=== PATIENT | male | born 1935 | race Caucasian/White ===

== ENCOUNTER → 2018-12-24 | Outpatient (CLI) | payer MEDICARE, BC ==
[~2018-12-24] MED LIST: CIPRO500 MG PO; FLOMAX0.4 MG PO; LEVAQUIN 750 M750 MG PO; OXYCODONE HCL 55 MG PO; PROSCAR 5MG TABL5 MG PO
== END ==
LOC: M.RAD 08:05
DX: J47.9 Bronchiectasis, uncomplicated (principal)

== ENCOUNTER 2020-04-24 14:16 | Inpatient (IN) | payer MEDICARE, BC ==
[~2020-04-24] VITALS: Ht 182.9 cm; Wt 73.9 kg
[2020-04-24 14:24] VITALS: BP 117/74
[2020-04-24 14:57] LABS: ABSOLUTE EOSINOPHILS 0.1 thou/uL (0.0-0.7); ABSOLUTE MONOCYTES 0.9 thou/uL (0.0-1.2); ABSOLUTE NEUTROPHILS 6.7 thou/uL (1.6-8.1); BASOPHILS 0.4 %; EOSINOPHILS 0.8 %; HEMATOCRIT 38.4 % (42.0-52.0); HEMOGLOBIN 12.9 gm/dL (14.0-18.0); LYMPHOCYTES 20.5 %; MCH 28.8 pg (26.0-34.0); MCHC 33.7 g/dL (28.0-37.0); MCV 85.4 fL (80.0-100.0); MONOCYTES 9.2 %; MPV 9.7 fl. (7.2-11.1); NUCLEATED RBCS 0 /100WBC; PLATELET COUNT* 147 thou/uL (150-400); POLYS 69.1 %; RBC 4.49 mil/uL (4.50-6.00); RDW-CV 14.6 % (10.5-14.5); WBC 9.7 thou/uL (4.0-11.0)
[2020-04-24 15:02] LABS: CALCIUM 8.3 mg/dL (8.5-10.1); CREATININE 1.5 mg/dL (0.6-1.3); POTASSIUM 3.9 mmol/L (3.5-5.1)
[2020-04-24 15:04] LABS: APTT 26.3 Seconds (25.0-31.3); INR 1.1
[2020-04-24 15:13] LABS: ALBUMIN 3.5 g/dL (3.4-5.0); MAGNESIUM 1.9 mg/dL (1.8-2.4); TOTAL BILIRUBIN 0.6 mg/dL (<0.1-1.0)
[2020-04-24 16:57] VITALS: BP 96/60
[2020-04-24 20:00] VITALS: BP 94/60
--- NOTE | 2020-04-24 20:11 | NUR ---
PT ADMITTED TO ROOM 204. PT REMAINS IN ATRIAL FIBRILLATION WITH RATE IN THE 60'S. PT HAS BEEN FREE FROM PAIN. PT INSTRUCTED ON USE OF CALL LIGHT TO OBTAIN NURSING ASSIST.
--- NOTE | 2020-04-24 22:00 | NUR ---
RECEIVED REPORT AND ASSUMED CARE OF PT, ASSESSMENT COMPLETED. PT VERY PLEASANT AND COOPERATIVE. SITTING UP IN CHAIR WATCHING TV. TELEMETRY ON SHOWING A-FIB WITH OCC PVC. DENIES CHEST PAIN OR SOA. WILL CONT TO MONITOR AND ASSIST NEEDED.
[2020-04-24 23:51] VITALS: BP 117/77
[2020-04-25 04:00] VITALS: BP 114/71
--- NOTE | 2020-04-25 07:32 | NUR ---
AWAKE OCC DURING NIGHT. INDEPENDENT BRP WITH STEADY GAIT. TELEMETRY CONT TO SHOW A-FIB WITH RATE INCREASING TO 160'S WHEN UP TO BR. NO CHANGE IN ASSESSEMNT. HS GOALS OF REST AND SAFETY ACHIEVED. HOURLY ROUNDING OBSERVED.
[2020-04-25 08:00] VITALS: BP 90/62
--- NOTE | 2020-04-25 10:06 | EKG ---
[place] [address] ELECTROCARDIOGRAM REPORT Name: YAYO TINEO Room: [address] ADM IN ..#: [id number] Admission: 04/24/20 Attend Phys: Wellington Hebert Discharge: Date of : 37 Date of Service: 04/24/20 1421 Report #: [id number] THIS REPORT FOR: //name// [facility] ED Test Date: 2020-04-24 Test Time: 14:21:42 Pat Name: YAYO TINEO Department: Room: [facility] Gender: M Security Intelligence Analyst: BREONNA : 1935 Requested By: Fernando Schrader Order Number: [id number] MD: Anastacio Mcdonnell Measurements Intervals [place] Rate: 133 P: [place]: QRS: 88 QRSD: 89 T: 57 QT: 302 QTc: 450 Interpretive Statements Atrial fibrillation with rapid V-rate septal q waves Ventricular premature complex Borderline right axis deviation Borderline T wave abnormalities Compared to ECG 01/26/2017 11:35:23 Ventricular premature complex(es) now present T-wave abnormality now present Sinus rhythm no longer present Electronically Signed On 04-25-2020 10:06:43 CDT by Anastacio Mcdonnell [email or web address] <ELECTRONICALLY SIGNED> By: Anastacio Mcdonnell MD, [facility] 04/25/20 1006 142 142 Anastacio Mcdonnell MD, [facility] /EPI
--- NOTE | 2020-04-25 10:09 | EKG ---
[place] [address] ELECTROCARDIOGRAM REPORT Name: YAYO TINEO Room: [address] ADM IN M.R.#: [id number] Admission: 04/24/20 Attend Phys: Wellington Hebert Discharge: Date of : 37 Date of Service: 04/24/20 1651 Report #: [id number] THIS REPORT FOR: //name// [facility] ED Test Date: 2020-04-24 Test Time: 16:51:04 Pat Name: YAYO TINEO Department: Room: [address] Gender: M Performance Improvement Analyst: CCD : 1935 Requested By: Fernando Schrader Order Number: [id number] Reading MD: Anastacio Mcdonnell Measurements Intervals [place] Rate: 56 P: CA: QRS: 81 QRSD: 96 T: 79 QT: 403 QTc: 389 Interpretive Statements Atrial fibrillation Borderline right axis deviation Borderline low voltage, extremity leads Nonspecific T abnormalities, anterior leads Baseline wander in lead(s) II,III,aVF Compared to ECG 04/24/2020 14:21:42 Ventricular premature complex(es) no longer present T-wave abnormality still present Electronically Signed On 04-25-2020 10:09:39 CDT by Anastacio Mcdonnell [email or web address] <ELECTRONICALLY SIGNED> By: Anastacio Mcdonnell MD, [facility] 04/25/20 1009 50 165 Anastacio Mcdonnell MD, [facility] /EPI
[2020-04-25 12:00] VITALS: BP 105/66
--- NOTE | 2020-04-25 13:57 | NUR ---
Pt is A&O. KOBUK. Resides at home with . Independent. No DME. Hx of HH, does not recall with which agency. No hx of SNF. Cardiology following, Pt on cardizem gtt. Goal is home at dc. No needs anticipated.
[2020-04-25 14:24] LABS: HEMATOCRIT 39.6 % (42.0-52.0); HEMOGLOBIN 13.3 gm/dL (14.0-18.0); MCH 28.8 pg (26.0-34.0); MCHC 33.5 g/dL (28.0-37.0); MCV 85.8 fL (80.0-100.0); RBC 4.61 mil/uL (4.50-6.00); RDW-CV 14.8 % (10.5-14.5); WBC 8.1 thou/uL (4.0-11.0)
[2020-04-25 14:28] LABS: CALCIUM 8.4 mg/dL (8.5-10.1); CREATININE 1.4 mg/dL (0.6-1.3); MAGNESIUM 1.9 mg/dL (1.8-2.4); POTASSIUM 4.2 mmol/L (3.5-5.1)
[2020-04-25 14:29] LABS: INR 1.1
[2020-04-25 16:00] VITALS: BP 121/85
--- NOTE | 2020-04-25 17:36 | 2DMMODE ---
[place] [address] 2 D/M-MODE ECHOCARDIOGRAM Name: YAYO TINEO Room: [address] IN [facility]#: [id number] Admission: 04/24/20 Attend Phys: Wellington Hebert Discharge: Date of : 37 Date of Service: 04/25/20 1736 Report #: [id number] THIS REPORT FOR: cc: Jt Angel,Jt Soto,Anastacio Araujo MD [facility] ~ APPROVED REPORT Study performed: 04/25/2020 16:04:07 EXAM: Comprehensive 2D, Doppler, and color-flow Echocardiogram Patient Location: In-Patient Room #: [facility] [place] Status: routine BSA: 1.95 HR: 86 bpm BP: 105/66 mmHg Rhythm: Atrial Fibrillation Other Information Study Quality: Good Indications Atrial Fibrillation 2D Dimensions IVSd: 10.66 (7-11mm) LVOT Diam: 22.34 (18-24mm) LVDd: 51.95 mm PWd: 8.46 (7-11mm) Ascending Ao: 34.75 (22-36mm) LVDs: 43.39 (25-40mm) Aortic Root: 34.10 mm Volumes Left Atrial Volume (Systole) LA ESV Index: 29.50 mL/m2 Aortic Valve AoV Peak Marco.: 0.93 m/s AO Peak Gr.: 3.45 mmHg LVOT Max P.68 mmHg AO Mean Gr.: 1.67 mmHg LVOT Mean P.83 mmHg LVOT Max V: 0.65 m/s AO V2 VTI: 13.97 cm LVOT Mean V: 0.43 m/s MURPHY (VTI): 3.03 cm2 LVOT V1 VTI: 10.79 [place] [address] 2 D/M-MODE ECHOCARDIOGRAM Name: YAYO TINEO Room: [address] IN [facility].#: [id number] Admission: 04/24/20 Attend Phys: Wellington Hebert Discharge: Date of : 37 Date of Service: 04/25/20 1736 Report #: [id number] TDI Medial E' Marco.: 0.11 m/s Pulmonary Valve PV Peak Marco.: 0.77 m/s PV Peak Gr.: 2.39 mmHg Tricuspid Valve RAP Estimate: 5.00 mmHg TR Peak Gr.: 21.57 mmHg RVSP: 26.00 mmHg PA Pressure: 26.00 mmHg TV Max P.00 mmHg Left Ventricle The left ventricle is normal size. There is global hypokinesis of the left ventricle. There is normal left ventricular wall thickness. Left ventricular systolic function is moderately decreased. LVEF is 40-45%. This study is not technically sufficient to allow evaluation of the LV diastolic function due to atrial fibrillation. Right Ventricle The right ventricle is normal size. The right ventricular systolic function is normal. Atria Left atrium is mildly dilated. Right atrium is moderately dilated. Aortic Valve The aortic valve is normal in structure. Trace aortic regurgitation. There is no aortic valvular stenosis. Mitral Valve Doming of the anterior mitral valve leaflet is present. Mild mitral regurgitation. No evidence of mitral valve stenosis. Tricuspid Valve The tricuspid valve is normal in structure. Trace tricuspid regurgitation. No pulmonary hypertension. Pulmonic Valve The pulmonary valve is normal in structure. There is no pulmonic valvular regurgitation. Great Vessels The aortic root is normal in size. IVC is normal in size and collapses >50% [place] [address] 2 D/M-MODE ECHOCARDIOGRAM Name: YAYO TINEO Room: [address] IN [facility]#: [id number] Admission: 04/24/20 Attend Phys: Wellington Hebert Discharge: Date of : 37 Date of Service: 04/25/20 1736 Report #: [id number] Pericardium There is no pericardial effusion. <Conclusion> LVEF is 40-45%. Left atrium is mildly dilated. Doming of the anterior mitral valve leaflet is present. Mild mitral regurgitation. <ELECTRONICALLY SIGNED> By: Anastacio Mcdonnell MD, [facility] 04/25/20 1736 173 35 Anastacio Mcdonnell MD, [facility] /INF
--- NOTE | 2020-04-25 18:06 | NUR ---
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
[2020-04-25 19:30] VITALS: BP 118/69
[2020-04-26] VITALS: BP 110/48
[2020-04-26 02:06] LABS: GLYCOHEMOGLOBIN (HGB A1C) 5.8 % (4.8-5.6)
[2020-04-26 04:00] VITALS: BP 98/50
[2020-04-26 04:56] LABS: CHOLESTEROL 104 mg/dL (<200); HDL CHOLESTEROL 43 mg/dL (>40); LDL CHOLESTEROL 52 mg/dL (<100); TC:HDL 2.4 Ratio (Not establshd); TRIGLYCERIDE 47 mg/dL (<150); VLDL 9 mg/dL (<40)
[2020-04-26 05:07] LABS: SERUM ASSESSMENT CLEAR
--- NOTE | 2020-04-26 05:25 | NUR ---
PATIENT HAS REMAINED ALERT AND ORIENTED X 4 THROUGHOUT THE SHIFT AND RESTING QUIETLY ON HOURLY ROUNDS. UP TO ROOM INDEPENDENTLY WITH STEADY GAIT. DENIES CHEST PAIN OR SHORTNESS OF AIR. PATIENT REMAINS IN A-FIB ON MONITOR WITH PVC'S. HR IMPROVED OVERALL. BP 98-118/48-69. HOURLY ROUNDS COMPLETED. CONTINUE TO MONITOR.
[2020-04-26 08:08] VITALS: BP 108/57
--- NOTE | 2020-04-26 08:24 | CON ---
[address] [address] CONSULTATION Name: YAYO TINEO Room: [address] IN .R.#: [id number] Admission: 04/24/20 Attend Phys: Elo Roy Discharge: Date of : 37 Report #: [id number] THIS REPORT FOR: //name// cc: Jt Angel Russell J. DO THIS REPORT FOR: //name// CC: Jt Richards DATE OF SERVICE: 04/25/2020 CARDIOLOGY CONSULTATION HISTORY OF PRESENT ILLNESS: The patient is an 84-year-old white male who I was asked to see in the hospital today after he was noted to be in atrial fibrillation. The patient states that in 2003, he was diagnosed with mitral valve prolapse. Apparently, he had a treadmill test at that time, but was placed on no medications. 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 For the past few weeks, he has had increasing shortness of breath and decrease in his energy level. He denied any fever, cough, vomiting, bleeding. He has had some swelling of his feet. He denies chest pain, palpitations. PAST MEDICAL HISTORY: He has had hernia repair, tonsillectomy. No history of hypertension, diabetes. He does have prostatism. MEDICATIONS: His only medication includes Proscar. ALLERGIES: He has no known drug allergies. FAMILY HISTORY: His father of heart attack. SOCIAL HISTORY: He is . He and his live in a farm. No smoking or alcohol abuse. REVIEW OF SYSTEMS: No history of stroke. He is hard of hearing. No asthma, liver disease, kidney disease. He had skin cancer in the past. He wears glasses. No psychiatric illness. PHYSICAL EXAMINATION: GENERAL: Elderly male, lying in bed, appeared in no distress. VITAL SIGNS: He had a blood pressure of 110/60, pulse is 90 and irregular. He was afebrile. HEENT: He was anicteric. Conjunctivae pink. Mucous membranes moist. NECK: Veins nondistended. No carotid bruits[place] [address] CONSULTATION Name: TINEOYAYO Room: [address]#: [id number] Admission: 04/24/20 Attend Phys: Elo Roy Discharge: Date of : 37 Report #: [id number] CHEST: Clear to auscultation. CARDIOVASCULAR: Irregular, tachycardia. No significant murmurs. ABDOMEN: Soft. EXTREMITIES: Had trace edema. Dorsalis pedis pulse cannot be palpated. SKIN: Cool and dry. NEUROLOGIC: Nonfocal. LYMPH: No adenopathy. MUSCULOSKELETAL: No joint effusion. DIAGNOSTIC DATA: ECG on admission showed atrial fibrillation with increased ventricular response rate. There were nonspecific ST-segment changes noted. His workup so far; he had a chest x-ray that showed normal heart size, small left effusion. LABORATORY DATA: Sodium 140, potassium 4.2, BUN 22, creatinine 1.4. His white blood cell count 8.1, hemoglobin of 13.3. IMPRESSION AND RECOMMENDATIONS: 1. Atrial fibrillation. Onset unclear. I would not recommend attempts at cardioversion. I would recommend anticoagulation. I would add digoxin for rate control since the patient is noted to be hypotensive. 2. Chronic kidney disease. 3. Prostatism. 4. History of skin cancer. 5. History of mitral valve prolapse. Recommend repeat echocardiogram. <ELECTRONICALLY SIGNED> By: Anastacio Mcdonnell MD, FACC 04/26/20 0824 1506 [id number] Mcdonnell MD, FACC /nt
--- NOTE | 2020-04-26 08:51 | NUR ---
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
--- NOTE | 2020-04-26 10:43 | EKG ---
[place] [address] ELECTROCARDIOGRAM REPORT Name: YAYO TINEO Room: [address] ADM IN M.R.#: [id number] Admission: 04/24/20 Attend Phys: Wellington Hebert Discharge: Date of : 37 Date of Service: 04/26/20 0829 Report #: [id number] THIS REPORT FOR: //name// [facility] Test Date: 2020-04-26 Test Time: 08:29:54 Pat Name: YAYO TINEO Department: Room: [address] Gender: M Manager Urology: : 1935 Requested By: Anastacio Mcdonnell Order Number: [id number] Reading MD: Anastacio Mcdonnell Measurements Intervals [place] Rate: 108 P: [place]: QRS: 64 QRSD: 86 T: QT: 375 QTc: 503 Interpretive Statements Atrial fibrillation Ventricular bigeminy Low voltage, extremity leads Nonspecific T abnormalities, lateral leads Compared to ECG 04/24/2020 16:51:04 Ventricular premature complex(es) now present T-wave abnormality still present Electronically Signed On 04-26-2020 10:43:09 CDT by Anastacio Mcdonnell [email or web address] <ELECTRONICALLY SIGNED> By: Anastacio Mcdonnell MD, FAC 04/26/20 1043 8 8 Anastacio Mcdonnell MD, FAC /EPI
[2020-04-26 10:50] LABS: HEMATOCRIT 36.6 % (42.0-52.0); HEMOGLOBIN 12.3 gm/dL (14.0-18.0); MCHC 33.7 g/dL (28.0-37.0); MCV 86.1 fL (80.0-100.0); MPV 9.8 fl. (7.2-11.1); RBC 4.25 mil/uL (4.50-6.00); RDW-CV 14.5 % (10.5-14.5); WBC 8.2 thou/uL (4.0-11.0)
[2020-04-26 10:56] LABS: CALCIUM 8.2 mg/dL (8.5-10.1); CREATININE 1.2 mg/dL (0.6-1.3); POTASSIUM 4.2 mmol/L (3.5-5.1)
[2020-04-26 13:54] VITALS: BP 103/47
--- NOTE | 2020-04-26 16:07 | NUR ---
Cardiology continues to follow. Anticipate dc to home tomorrow. No needs anticipated.
[2020-04-26 17:10] VITALS: BP 123/59
[2020-04-26 19:50] VITALS: BP 116/57
[2020-04-27] VITALS: BP 143/88
[2020-04-27 04:00] VITALS: BP 124/63
[2020-04-27 05:36] LABS: HEMATOCRIT 37.4 % (42.0-52.0); HEMOGLOBIN 12.7 gm/dL (14.0-18.0); MCV 85.2 fL (80.0-100.0); MPV 9.7 fl. (7.2-11.1); RBC 4.39 mil/uL (4.50-6.00); RDW-CV 14.4 % (10.5-14.5); WBC 7.9 thou/uL (4.0-11.0)
[2020-04-27 05:51] LABS: CALCIUM 8.3 mg/dL (8.5-10.1); CREATININE 1.3 mg/dL (0.6-1.3); POTASSIUM 3.9 mmol/L (3.5-5.1)
--- NOTE | 2020-04-27 06:00 | NUR ---
PT CARE ASSUMED AT 1930. SAT MAINTAINED IN RA. ALERT AND ORIENTED X4. DENIES PAIN AND SOB. CALL LIGHT WITHIN REACH AND BED IN LOW POSITION. HOURLY ROUNDING DONE FOR PT SAFETY.
--- NOTE | 2020-04-27 07:15 | NUR ---
CHANGE OF SHIFT BEDSIDE REPORT GIVEN PATIENT SEEN AT BEDSIDE IN BED ASLEEP ASSUMED PATIENT CARE
[2020-04-27 08:00] VITALS: BP 125/66
[2020-04-27] MEDS ORDERED: ELIQUIS5 MG PO (09:24)
[2020-04-27] MEDS ORDERED: CEFDINIR300 MG PO (09:24)
[2020-04-27] MEDS ORDERED: LANOXIN 0.25M0.25 M1 PO (09:24)
--- NOTE | 2020-04-27 11:40 | NUR ---
Plan dc to home today, cardiology to see to adj meds prior to dc. No CM needs.
[2020-04-27 11:59] VITALS: BP 122/66
[2020-04-27 16:00] VITALS: BP 128/72
[2020-04-27 17:07] VITALS: BP 128/72
--- NOTE | 2020-04-27 17:25 | NUR ---
PATIENT DISCHARGED TO HOME ALL DISCHARGE INSTRUCTION GIVEN, ACKNOWLEDGED, SIGNED PAPERS GIVEN PATIENTS HEART MONITOR AND IV REMOVED PERSONAL BELONGINGS RETURNED PATIENT ASSISTED OUT VIA WC TO WAITING CAR
== END 2020-04-27 17:25 | disposition home or self-care (01) | DRG 177 ==
LOC: M.ERS 14:16 → M.2W 15:22 → M.TBA-ER 15:22 → M.2W 17:13
PROVIDERS: Emergency Medicine Emergency Medical Services; Internal Medicine Cardiovascular Disease; ADMIT Internal Medicine; ATTEND Internal Medicine
DX: J15.6 Pneumonia due to other Gram-negative bacteria (principal); N17.0 Acute kidney failure with tubular necrosis; I50.33 Acute on chronic diastolic (congestive) heart failure; I48.20 Chronic atrial fibrillation, unspecified; I13.0 Hypertensive heart and chronic kidney disease with heart failure and stage 1 through stage 4 chronic kidney disease, or unspecified chronic kidney disease; D68.9 Coagulation defect, unspecified; I42.9 Cardiomyopathy, unspecified; D64.9 Anemia, unspecified; I95.9 Hypotension, unspecified; N18.3 Chronic kidney disease, stage 3 (moderate); N40.0 Benign prostatic hyperplasia without lower urinary tract symptoms; Z20.828 Contact with and (suspected) exposure to other viral communicable diseases; Z79.899 Other long term (current) drug therapy; Z85.828 Personal history of other malignant neoplasm of skin

== ENCOUNTER → 2020-04-24 | Outpatient (CLI) | payer MEDICARE, BC | LOC: M.RAD 11:44 | PROVIDERS: ATTEND Nurse Practitioner Family | DX: J90 Pleural effusion, not elsewhere classified (principal) ==

== ENCOUNTER → 2020-05-18 | Outpatient (CLI) | payer MEDICARE, BC ==
[~2020-05-18] MED LIST changes: +CEFDINIR300 MG PO; +ELIQUIS5 MG PO; +LANOXIN 0.25M0.25 M1 PO
[2020-05-18 11:21] LABS: CALCIUM 8.8 mg/dL (8.5-10.1); CREATININE 1.4 mg/dL (0.6-1.3); POTASSIUM 4.5 mmol/L (3.5-5.1)
--- NOTE | 2020-05-18 18:03 | CARDNUC ---
[place] [address] CARDIAC NUCLEAR IMAGING REPORT Name: YAYO TINEO Room: [facility]#: [id number] Admission: 05/18/20 Attend Phys: Beto Manning, Discharge: Date of : 37 Date of Service: 05/18/20 1803 Report #: [id number] THIS REPORT FOR: cc: Jt Angel Russell J. DO Liston, Michael J. MD [facility] ~ APPROVED REPORT Study performed: 05/18/2020 10:07:15 Exam: Nuclear Stress Test Indication: Chest pain, Dyspnea Patient Location: Out-Patient Stress Tech: Marta Huerta Stress Nurse: Gena Crabtree RN NM Tech:YANN Suresh Ht: 6 ft 2 in Wt: 150 lbs BSA: 1.92 m2 HR: 89 bpm BP: 115/66 mmHg BMI: 19.25 Rhythm: Atrial Fibrillation Medical History Medical History: Atrial Fibrillation, Cardiomyopathy, mitral valve prolapse Medications: Eliquis, digoxin, Lasix, K-Dur Allergies: No known drug allergies Cardiac Risk Factors: Age greater than 55, family history of coronary artery disease Previous Cardiac Procedures: None Stress Test Details Stress Test: Pharmacologic stress testing performed using 0.4 mg of regadenoson per 5 mL given IV over 10 seconds. Reason for pharmacologic stress test: physical limitation. HR Resting HR: 89 bpm Max Heart Rate (APMHR): 136 bpm Max HR Achieved: 121 bpm Target HR (85% APMHR): 115 bpm % of APMHR: 88 Recovery HR: 105 bpm BP Resting BP: 115/[place] [address] CARDIAC NUCLEAR IMAGING REPORT Name: YAYO TINEO Room: [facility]#: [id number] Admission: 05/18/20 Attend Phys: Beto Manning, Discharge: Date of : 37 Date of Service: 05/18/20 1803 Report #: [id number] Max BP: 91/54 mmHg ECG Resting ECG: Atrial fibrillation with frequent unifocal premature ventricular contractions Stress ECG: Atrial fibrillation with frequent unifocal premature ventricular contractions ST Change: None Recovery ECG: Atrial fibrillation with frequent unifocal premature ventricular contractions Recovery ST Change: None Clinical The patient tolerated Lexiscan infusion without significant cardiac symptoms. Stress ECG Conclusion The baseline twelve-lead EKG shows atrial fibrillation. There were no significant ST segment abnormalities. There were frequent unifocal premature ventricular contractions. EKGs obtained during and post Lexiscan infusion showed persistent atrial fibrillation with continued frequent unifocal premature ventricular contractions. No significant ST segment depression was appreciated. NM EXAM: Myocardial Perfusion REST/STRESS Imaging Protocol: Stress Tc-99m/Rest Tc-99m 1 day Resting Data Rest SPECT myocardial perfusion imaging was performed in supine position 30 minutes following the intravenous injection of 10.3 mCi of Tc-99m Sestamibi. Time of rest injection: 08:20 The images were gated to evaluate regional wall motion and calculate left ventricular ejection fraction. Administration Route: IV Administration Site: Right Arm Pharmacologic Stress Pharmacologic stress test was performed by injecting Regadenoson 0.4 mg IV push followed by the intravenous injection of 28.8 mCi of Tc-99m Sestamibi. Time of stress injection: 10:05 Administration Route: IV Administration Site: Right Arm Heart Rate at time of stress injection: 121 bpm. Gated Stress SPECT was performed 45 [place] [address] CARDIAC NUCLEAR IMAGING REPORT Name: YAYO TINEO Room: [facility]#: [id number] Admission: 05/18/20 Attend Phys: Beto Manning, Discharge: Date of : 37 Date of Service: 05/18/20 1803 Report #: [id number] injection. The images were gated to evaluate regional wall motion and calculate left ventricular ejection fraction. Prone imaging was performed. Study Quality Study: Good Artifact: No artifact Study Data At rest, the left ventricular ejection fraction was 44%.. Post stress, the left ventricular ejection was 38%.. TID = 1.04. Perfusion There is mild photopenia in the inferior wall that resolved with post-rest imaging consistent with diaphragmatic attenuation artifact. No other significant fixed or reversible defects are identified. Wall Motion There is global hypokinesis without obvious focal wall motion abnormality. Nuclear Conclusion ECG Findings: negative for ischemia Clinical Findings: negative for ischemia Nuclear Findings: negative for ischemia Exercise Capacity: not assessed Left Ventricular Function: abnormal Perfusion images show no defect to suggest infarct or ischemia. Left ventricular systolic function appears moderately decreased with global hypokinesis. Findings consistent with nonischemic cardiomyopathy. This is not a high risk study. <Conclusion> The baseline twelve-lead EKG shows atrial fibrillation. There were no significant ST segment abnormalities. There were frequent unifocal premature ventricular contractions. EKGs obtained during and post Lexiscan infusion showed persistent atrial fibrillation with continued frequent unifocal premature ventricular contractions. No significant ST segment depression was appreciated. <ELECTRONICALLY SIGNED> By: Beto Manning MD, FACC 05/18/201802 02 02 Beto Manning MD, FACC /INF
== END ==
LOC: M.NUC 05-11 15:47 → M.LAB 07:47 → M.NUC 08:00
PROVIDERS: ATTEND Internal Medicine Cardiovascular Disease
DX: I48.91 Unspecified atrial fibrillation (principal); I42.9 Cardiomyopathy, unspecified; R60.0 Localized edema; I50.20 Unspecified systolic (congestive) heart failure

== ENCOUNTER → 2020-06-18 | Outpatient (CLI) | payer MEDICARE, BC ==
[~2020-06-18] VITALS: Ht 188 cm; Wt 68.2 kg
[~2020-06-18] MED LIST changes: +LANOXIN125 MCG PO; +LASIX 20 MG TAB20 MG PO; +POTASSIUM20 PO
[2020-06-18 09:34] LABS: HEMATOCRIT 39.8 % (42.0-52.0); MCH 28.3 pg (26.0-34.0); MCHC 32.6 g/dL (28.0-37.0); MCV 86.9 fL (80.0-100.0); RBC 4.58 mil/uL (4.50-6.00); RDW-CV 16.1 % (10.5-14.5); WBC 6.2 thou/uL (4.0-11.0)
[2020-06-18 09:38] VITALS: BP 122/62
[2020-06-18 09:55] LABS: ANION GAP 9 mmol/L (7-16); BUN 18 mg/dL (7-18); CALCIUM 8.5 mg/dL (8.5-10.1); CHLORIDE 106 mmol/L (98-107); CO2 26 mmol/L (21-32); CREATININE 1.4 mg/dL (0.6-1.3); GLUCOSE 92 mg/dL (70-99); POTASSIUM 4.5 mmol/L (3.5-5.1); SODIUM 141 mmol/L (136-145)
[2020-06-18 09:59] LABS: ALBUMIN 3.8 g/dL (3.4-5.0); ALKALINE PHOSPHATASE 66 U/L (46-116); CHOLESTEROL 136 mg/dL (<200); HDL CHOLESTEROL 57 mg/dL (>40); LDL CHOLESTEROL 67 mg/dL (<100); SERUM ASSESSMENT Clear; SGOT 24 U/L (15-37); SGPT 23 U/L (30-65); TC:HDL 2.4 Ratio (Not establshd); TOTAL BILIRUBIN 0.6 mg/dL (<0.1-1.0); TOTAL PROTEIN 7.2 g/dL (6.4-8.2); TRIGLYCERIDE 64 mg/dL (<150); VLDL 13 mg/dL (<40)
[2020-06-18 10:12] LABS: APTT 28.4 Seconds (25.0-31.3); INR 1.1; PROTIME 11.2 Seconds (9.20-11.50)
[2020-06-18 11:24] LABS: URINE BILIRUBIN NEGATIVE (Negative); URINE BLOOD NEGATIVE (Negative); URINE CLARITY CLEAR; URINE COLOR YELLOW; URINE GLUCOSE-RANDOM NEGATIVE (Negative); URINE KETONES NEGATIVE (Negative); URINE LEUKOCYTES-REFLEX NEGATIVE (Negative); URINE NITRITE-REFLEX NEGATIVE (Negative); URINE PROTEIN NEGATIVE (Negative); URINE UROBILINOGEN 0.2 E.U./dl (0.2-1.0)
[2020-06-18 15:05] VITALS: BP 116/66
[2020-06-18 15:20] VITALS: BP 94/57
[2020-06-18 15:39] VITALS: BP 116/65
--- NOTE | 2020-06-18 16:13 | EKG ---
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: : 1935 Requested By: Anastacio Mcdonnell Order Number: [id number] Reading MD: Anastacio Mcdonnell Measurements Intervals [place] Rate: 72 P: [place]: QRS: 87 QRSD: 93 T: 55 QT: 386 QTc: 423 Interpretive Statements Atrial fibrillation Borderline right axis deviation Borderline low voltage, extremity leads Compared to ECG 04/26/2020 08:29:54 Ventricular premature complex(es) no longer present T-wave abnormality no longer present Electronically Signed On 06-18-2020 16:13:27 INSTRUCTIONAL MEDIA SERVICES TECHNICIAN by Anastacio Mcdonnell [email or web address] <ELECTRONICALLY SIGNED> By: Anastacio Mcdonnell MD, FAC 06/18/20 1613 1009 1009 Anastacio Mcdonnell MD, [facility] /EPI
--- NOTE | 2020-06-18 16:16 | EKG ---
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: Pin Ball Machine Mechanic: : 1935 Requested By: Anastacio Mcdonnell Order Number: [id number] Reading MD: Anastacio Mcdonnell Measurements Intervals [place] Rate: 84 P: 50 DE: 55 QRS: -81 QRSD: 152 T: 97 QT: 432 QTc: 511 Interpretive Statements ventricular-paced rhythm No further analysis attempted due to paced rhythm Compared to ECG 06/18/2020 10:09:03 Atrial fibrillation no longer present paced rhythm now seen Electronically Signed On 06-18-2020 16:16:06 BAKERY MACHINE MECHANIC SUPERVISOR by Anastacio Mcdonnell [email or web address] <ELECTRONICALLY SIGNED> By: Anastacio Mcdonnell MD, FACC 06/18/20 1616 160 05 Anastacio Mcdonnell MD, [facility] /EPI
--- NOTE | 2020-06-18 17:57 | CARD ---
[address] [address] CARDIAC CATH REPORT Name: YAYO TINEO Room: [facility]#: [id number] Admission: 06/18/20 Attend Phys: Anastacio Mcdonnell MD, F Discharge: Date of : 37 Report #: [id number] THIS REPORT FOR: //name// cc: Jt Angel Russell J. DO ~ ADDENDUM APPROVED REPORT Study performed: 06/18/2020 12:11:42 Patient Status: Out-Patient Room #: Event Personnel: nAastacio Mcdonnell Eap Counselor, Raghu Tom RN Game Producer, Una Francisco RTR Scrub, Melissa Vinson RTR Monitor Exam: Insertion of Single Chamber Permanent Pacemaker Indications: Sick Sinus Syndrome/Tachy Mal Syndrome The patient is a 85 year-old male with a history of Sick Sinus Syndrome, Atrial Fibrillation. Patient Info Anticoagulant Therapy: eliquis Conscious Sedation Start time: 13:26 End Time: 14:37 Fentanyl 25 mcg Versed 3 mg Implanted Devices: Biotronik ventricular lead. Model: Solia S 60. Serial: [id number]. Biotronik pacemaker generator. Model: Edora 8 SR-T. Serial: [id number]. Procedure The patient underwent informed consent. We discussed the details of the procedure including the risks, which include, but not limited to bleeding, infection, vascular damage, cardiac perforation, and pneumothorax. He understood these risks and was willing to proceed. As such, he was brought to the EP/Cardiac Catheterization laboratory in a fasting and sedated state and prepped and draped in a sterile fashion, received IV antibiotics prior to initiation of the procedure and a venogram was performed showing patency of the left axillary vein. The patient underwent conscious sedation, with no related complications. The patient was brought to the EP/Cardiac Catheterization laboratory and the left chest and shoulder were prepped and [place] [address] CARDIAC CATH REPORT Name: YAYO TINEO Room: [facility]#: [id number] Admission: 06/18/20 Attend Phys: Anastacio Mcdonnell MD, F Discharge: Date of : 37 Report #: [id number] manner. During this case, Fluoroscopy and 40 ml visipaque were used for imaging. The left subclavian region was infiltrated with 2% Lidocaine with Epinephrine subcutaneous anesthesia. A transverse incision was made in the left upper chest cavity. The subcutaneous pocket was formed via blunt dissection. Percutaneous venous access was achieved and an introducer sheath was inserted into the left Subclavian vein. Through the introducer sheaths the ventricular lead wire was positioned in the right atrial appendage and right ventricular apex respectively. Utilizing fluoroscopic guidance, the ventricular lead wire was advanced over the wires and positioned in the right atria and right ventricle respectively. The ventricular lead was interrogated and with normal threshold. Initial placement of the microneedle obtained arterial blood. The needle was withdrawn and hemostasis obtained by manual pressure. Electrode Parameters R Wave: 12 mv Ventricular Threshold: o.4 mv @ o.4 ms Ventricular Resistance: 760 ohm The lead and pulse generator were placed into the subcutaneous pocket. Sharp and sponge counts were confirmed to be correct. At this time the pocket was closed subcutaneously with a 0 Vicryl and 2.0 Vicryl and the skin was closed with a 4.0 Vicryl. The operative site was dressed in sterile fashion with Dermabond and the patient was transferred to the floor in stable condition. Complications The patient tolerated the procedure well and there were no complications associated with the procedure. Since the patient had stopped taking his eliquis 2 days prior to the procedure, the pocket was irrigated with d stat flowable solution. Findings Specimens Removed: No Estimated Blood Loss: less than 5 [place] [address] CARDIAC CATH REPORT Name: MAURY TINEODARÍO Patterson Room: [facility]#: [id number] Admission: 06/18/20 Attend Phys: Anastacio Mcdonnell MD, F Discharge: Date of : 37 Report #: [id number] Successful placement of a single lead biotronic mri compatible pacemaker generator and ventricular lead. <ELECTRONICALLY SIGNED> By: Anastacio Mcdonnell MD, FACC 06/18/201756 56 56Dakate Mcdonnell MD, [facility] /INF
--- NOTE | 2020-06-19 13:47 | H ---
[place] [address] HISTORY AND PHYSICAL Name: TINEOYAYO [id number] Admission: 06/18/20 Attend Phys: Anastacio Mcdonnell MD, F Discharge: Date of : 37 Report #: [id number] THIS REPORT FOR: //name// cc: Jt Angel Russell J. DO ~ CC: Anastacio Angel DO DATE OF SERVICE: 06/18/2020 CARDIOLOGY HISTORY AND PHYSICAL HISTORY OF PRESENT ILLNESS: The patient is an 85-year-old white male who was brought to the outpatient department to undergo placement of a permanent pacemaker. The patient apparently has a history of mitral valve prolapse in the past. 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 Recently, he was admitted to [facility] in April of this year with shortness of breath and fatigue. He had some swelling of his feet. He was found to be in atrial fibrillation. I saw him in consultation. I recommended rate control and anticoagulation rather than attempts at cardioversion. His blood pressure is noted to be low and he was not given a beta penelope or calcium penelope. He was placed on digoxin. He underwent an echocardiogram on 04/25 that showed an ejection fraction 45% with left atrial enlargement, mild mitral regurgitation. He is felt to have pneumonia. He was started on digoxin for rate control and Eliquis for anticoagulation. He was discharged. Since that time, he has noticed his heart beating irregular. His shortness of breath is improved. He continues to be fatigued. He saw my nurse practitioner on 05/11 and was given an event recorder. I reviewed the event recorder. This showed episodes of rapid atrial fibrillation up to 160 beats per minute. He also had pauses over 4 seconds. He was felt to have tachybrady syndrome and I have recommended permanent pacemaker implantation. He denies recent chest pain, syncope, bleeding problem. PAST MEDICAL HISTORY: Significant for hernia repair, tonsillectomy, removal of skin cancer. CURRENT MEDICATIONS: Include Eliquis, which was stopped 2 days ago; digoxin; Lasix for edema; potassium; Proscar. ALLERGIES: He has no known drug allergies. FAMILY HISTORY: His father had heart attack. SOCIAL HISTORY: He is . He and his live in a farm outside of [place], [place]. No smoking. [place] [address] HISTORY AND PHYSICAL Name: YAYO TINEO Room: [facility]#: [id number] Admission: 06/18/20 Attend Phys: Anastacio Mcdonnell MD, F Discharge: Date of : 37 Report #: [id number] REVIEW OF SYSTEMS: No history of stroke, asthma, liver disease, GI bleeding, kidney disease. Skin cancer removed in the past. He does wear glasses. No psychiatric illness. PHYSICAL EXAMINATION: GENERAL: Revealed an elderly male, appeared in no distress. VITAL SIGNS: Blood pressure is 130/80, pulse is 80 and irregular. HEENT: He was anicteric. Conjunctivae are pink. Mucous membranes are moist. NECK: Veins are nondistended. CHEST: Clear to auscultation. CARDIOVASCULAR: Irregular rhythm. No murmur. ABDOMEN: Soft. EXTREMITIES: Trace edema. Dorsalis pedis pulse cannot be palpated. LABORATORY DATA: His lab work today, sodium 141, BUN 18, creatinine 1.4. Liver function studies were normal. His TSH in April was 2.4. White blood cell count 6.2, hemoglobin 13. Urinalysis today negative for protein, negative leukocytes. Lipid profile in April; cholesterol 104, triglyceride 47, HDL 43, LDL 52. Digoxin level in April was 1.4. IMPRESSION AND RECOMMENDATIONS: 1. Persistent atrial fibrillation. Rate controlled with digoxin. I would continue chronic anticoagulation with Eliquis. 2. Sick sinus syndrome. The patient had pauses over 4 seconds. Recommend permanent pacemaker. I discussed indications, alternatives, risks of the procedure and he agreed to proceed. 3. Recent admission for pneumonia. <ELECTRONICALLY SIGNED> By: Anastacio Mcdonnell MD, FACC 06/19/20 1347 [id number] esther Mcdonnell MD, FACC /nt
== END ==
LOC: M.CL 08:55
PROVIDERS: ATTEND Internal Medicine Cardiovascular Disease
DX: I49.5 Sick sinus syndrome (principal); I48.91 Unspecified atrial fibrillation; I42.9 Cardiomyopathy, unspecified; I11.0 Hypertensive heart disease with heart failure; I50.20 Unspecified systolic (congestive) heart failure; Z79.899 Other long term (current) drug therapy; Z85.828 Personal history of other malignant neoplasm of skin; Z98.890 Other specified postprocedural states

== ENCOUNTER → 2020-07-11 | Outpatient (CLI) | payer MEDICARE, BC | LOC: M.CT 08:58 | PROVIDERS: ATTEND Nurse Practitioner Family | DX: J90 Pleural effusion, not elsewhere classified (principal); J98.4 Other disorders of lung; J47.9 Bronchiectasis, uncomplicated; M51.36 Other intervertebral disc degeneration, lumbar region ==

== ENCOUNTER → 2021-05-08 | Outpatient (CLI) | payer MEDICARE, BC ==
[2021-05-08 12:42] LABS: ALBUMIN 3.8 g/dL (3.4-5.0); CALCIUM 8.7 mg/dL (8.5-10.1); CREATININE 1.4 mg/dL (0.6-1.3); POTASSIUM 4.3 mmol/L (3.5-5.1); TOTAL BILIRUBIN 0.4 mg/dL (<0.1-1.0); TOTAL PROTEIN 7.4 g/dL (6.4-8.2)
== END ==
LOC: M.LAB 11:52
PROVIDERS: ATTEND Registered Nurse
DX: I48.21 Permanent atrial fibrillation (principal); I49.3 Ventricular premature depolarization

== ENCOUNTER → 2021-05-14 | Outpatient (CLI) | payer MEDICARE, BC ==
--- NOTE | 2021-05-14 14:32 | 2DMMODE ---
[place] [address] 2 D/M-MODE ECHOCARDIOGRAM Name: TINEOYAYO Room: [facility]#: [id number] Admission: 05/14/21 Attend Phys: Nohemi Will RN Discharge: Date of : 37 Date of Service: 05/14/21 1432 Report #: [id number] THIS REPORT FOR: cc: Jt Angel Russell J. DO Liston, Michael J. MD [facility] ~ APPROVED REPORT Study performed: 05/14/2021 10:18:54 EXAM: Comprehensive 2D, Doppler, and color-flow Echocardiogram Patient Location: Out-Patient BSA: 1.90 HR: 89 bpm BP: 140/58 mmHg Other Information Study Quality: Good Indications Atrial Fibrillation 2D Dimensions IVSd: 15.48 (7-11mm) LVOT Diam: 22.95 (18-24mm) LVDd: 42.17 mm PWd: 13.83 (7-11mm) Ascending Ao: 32.00 (22-36mm) LVDs: 53.19 (25-40mm) Aortic Root: 34.74 mm Volumes Left Atrial Volume (Systole) LA ESV Index: 27.70 mL/m2 Aortic Valve AoV Peak Marco.: 0.66 m/s AO Peak Gr.: 1.72 mmHg LVOT Max P.90 mmHg AO Mean Gr.: 1.03 mmHg LVOT Mean P.74 mmHg LVOT Max V: 0.69 m/s AO V2 VTI: 12.77 cm LVOT Mean V: 0.38 m/s MURPHY (VTI): 3.94 cm2 LVOT V1 VTI: 12.18 cm Mitral Valve MV Decel. Time: 157.88 [place] [address] 2 D/M-MODE ECHOCARDIOGRAM Name: YAYO TINEO Room: [facility]#: [id number] Admission: 05/14/21 Attend Phys: Nohemi Will RN Discharge: Date of : 37 Date of Service: 05/14/21 1432 Report #: [id number] MV E Max Marco.: 0.50 m/s MV PHT: 45.78 ms MVA (PHT): 4.81 cm2 TDI E/Lateral E': 4.55 E/Medial E': 5.00 Medial E' Marco.: 0.10 m/s Lateral E' Marco.: 0.11 m/s Pulmonary Valve PV Peak Marco.: 0.47 m/s PV Peak Gr.: 0.89 mmHg Tricuspid Valve RAP Estimate: 5.00 mmHg TR Peak Gr.: 16.93 mmHg RVSP: 21.93 mmHg PA Pressure: 21.93 mmHg Left Ventricle Left ventricle is mildly dilated. There is global hypokinesis. Additionally there is left ventricular systolic dyssynergy consistent with underlying bundle branch block or paced rhythm. Mild concentric left ventricular hypertrophy. Left ventricular systolic function is moderately decreased. LVEF is 35-40%. This study is not technically sufficient to allow evaluation of the LV diastolic function due to atrial fibrillation. Right Ventricle The right ventricle is normal size. The right ventricular systolic function is normal. Pacemaker lead is present in the right ventricle. Atria Left atrium is mildly dilated. Right atrium is mildly dilated. Aortic Valve The aortic valve is normal in structure. Mild aortic regurgitation. There is no aortic valvular stenosis. Mitral Valve The mitral valve is normal in structure. Mild mitral regurgitation. No evidence of mitral valve stenosis. Tricuspid Valve The tricuspid valve is normal in structure. Mild tricuspid regurgitation. No pulmonary [place] [address] 2 D/M-MODE ECHOCARDIOGRAM Name: MAURY TINEODARÍO Patterson Room: [facility]#: [id number] Admission: 05/14/21 Attend Phys: Nohemi Will RN Discharge: Date of : 37 Date of Service: 05/14/21 1432 Report #: [id number] Pulmonic Valve The pulmonary valve is normal in structure. There is no pulmonic valvular regurgitation. Great Vessels The aortic root is normal in size. IVC is normal in size and collapses >50% with inspiration. Pericardium There is no pericardial effusion. <Conclusion> Left ventricle is mildly dilated. Mild concentric left ventricular hypertrophy. Left ventricular systolic function is moderately decreased. LVEF is 35-40%. Left atrium is mildly dilated. Left atrium is mildly dilated. Right atrium is mildly dilated. Pacemaker lead is present in the right ventricle. Mild aortic regurgitation. Mild mitral regurgitation. Mild tricuspid regurgitation. No pulmonary hypertension. IVC is normal in size and collapses >50% with inspiration. <ELECTRONICALLY SIGNED> By: Beto Manning MD, FACC 05/14/21 [phone] Beto Manning MD, FACC /INF
== END ==
LOC: M.CRD 09:59
PROVIDERS: ATTEND Registered Nurse
DX: I08.3 Combined rheumatic disorders of mitral, aortic and tricuspid valves (principal); I48.21 Permanent atrial fibrillation; I49.3 Ventricular premature depolarization; I42.9 Cardiomyopathy, unspecified